=== PATIENT | female | born 1975 | race African-American/Black ===

== ENCOUNTER 2019-10-23 08:00 | Outpatient (CLI) | payer OTHER, SELFPAY ==
--- NOTE | ~2019-10-23 | MM_ITS ---
EXAMINATION: MM screening [facility] BI w keanu HISTORY: Screening mammogram TECHNIQUE: Craniocaudal and mediolateral oblique 3-D tomosynthesis images were obtained and synthetic 2-D images were generated. CAD analysis was submitted and interpreted. COMPARISON: Comparison to multiple prior studies sequentially, with oldest reviewed study dated 11/20 BREAST PARENCHYMAL COMPOSITION: There are scattered areas of fibroglandular density. FINDINGS: There is no evidence of suspicious mass, calcification, or architectural distortion to sugg est malignancy in either breast. There has been no suspicious interval change. IMPRESSION: 1. No mammographic evidence of malignancy. 2. Recommend routine screening mammography in one year. BI-RADS Category 1: Negative Reviewed, dictated and finalized at location A. APIST OCCUPATIONAL
== END 2019-10-23 08:01 | disposition home or self-care (01) ==
PROVIDERS: PCP Family Medicine; Visit Provider Physician Assistant
DX: Z12.31 Encounter for screening mammogram for malignant neoplasm of breast (principal)
CPT/HCPCS: 77063; 77067

== ENCOUNTER 2020-12-06 14:46 | Outpatient (CLI) | payer OTHER, SELFPAY | END 2020-12-06 14:47 | disposition home or self-care (01) | LOC: ANHCOVIDVC 14:46 | PROVIDERS: PCP Family Medicine | DX: Z23 Encounter for immunization (principal) | CPT/HCPCS: 0001A; 91300 ==

== ENCOUNTER 2020-12-29 14:16 | Outpatient (CLI) | payer OTHER, SELFPAY | END 2020-12-29 14:17 | disposition home or self-care (01) | LOC: ANHCOVIDVC 14:16 | PROVIDERS: PCP Family Medicine | DX: Z23 Encounter for immunization (principal) | CPT/HCPCS: 0002A; 91300 ==

== ENCOUNTER 2021-10-29 07:06 | Outpatient (CLI) | payer OTHER, SELFPAY ==
--- NOTE | ~2021-10-29 | MM_ITS ---
EXAMINATION: MM screening [facility] BI w keanu HISTORY: Screening TECHNIQUE: Craniocaudal and mediolateral oblique 3-D tomosynthesis images were obtained and synthetic 2-D images were generated. CAD analysis was submitted and interpreted. COMPARISON: Comparison to multiple prior studies sequentially, with oldest reviewed study dated 11/20. BREAST PARENCHYMAL COMPOSITION: There are scattered areas of fibroglandular density. FINDINGS: There are developing asymmetries in the outer aspect of the left breast on CC view. There i s a new mass in the upper inner quadrant of the left breast anteriorly. The right breast is stable wi thout evidence for malignancy. IMPRESSION: 1. New focal left breast asymmetries and mass. 2. Additional mammographic views and possible breast ultrasound are recommended. BI-RADS Category 0: Incomplete: Needs additional imaging evaluation. Reviewed, dictated and finalized at location A. T LINE PRODUCTION SUPERVISOR IMPRESSION: 1. New focal left breast asymmetries and mass. 2. Additional mammographic views and possible breast ultrasound are recommended . BI-RADS Category 0: Incomplete: Needs additional imaging evaluation.
== END 2021-10-29 07:07 | disposition home or self-care (01) ==
LOC: ANHIMG 07:07
PROVIDERS: PCP Family Medicine; Visit Provider Obstetrics & Gynecology
DX: Z12.31 Encounter for screening mammogram for malignant neoplasm of breast (principal); R92.8 Other abnormal and inconclusive findings on diagnostic imaging of breast
CPT/HCPCS: 77063; 77067

== ENCOUNTER 2021-11-14 13:27 | Outpatient (CLI) | payer OTHER, SELFPAY ==
--- NOTE | ~2021-11-14 | MMUS_ITS ---
EXAMINATION: MM diagnostic pernell LT w keanu, US breast LT complete HISTORY: Follow-up left breast mass TECHNIQUE: Additional 3-D tomosynthesis images of the left breast were performed and synthetic 2-D im ages were generated. CAD analysis was submitted and interpreted. High resolution complete left breast ultrasound was performed. COMPARISON: 10/23/2019 BREAST PARENCHYMAL COMPOSITION: Breast composed of scattered areas of fibroglandular density FINDINGS: MAMMOGRAPHIC FINDINGS: There is a mass in the upper inner quadrant of the left breast, middle third. No suspicious calcifica tions or architectural distortion. ULTRASOUND: Complete bilateral US of all 4 quadrants of the breasts and retroareolar region was reviewed. At 10:0 0, 4 cm from the nipple there is a 6 mm cyst corresponding to the mammographic abnormality. No other masses identified. No sonographic evidence for malignancy. IMPRESSION: 1. No evidence for malignancy in the left breast. Benign findings. 2. Routine yearly screening mammogram and regular clinical breast examination are recommended. BI-RADS Category 2: Benign finding(s). Reviewed, dictated and finalized at location A. IMPRESSION: 1. No evidence for malignancy in the left breast. Benign findings. 2. Routine yearly screening mammogram and regular clinical breast examination a re recommended. BI-RADS Category 2: Benign finding(s).
== END 2021-11-14 13:28 | disposition home or self-care (01) ==
LOC: ANHIMG 13:28
PROVIDERS: PCP Family Medicine; Visit Provider Obstetrics & Gynecology
DX: R92.8 Other abnormal and inconclusive findings on diagnostic imaging of breast (principal)
CPT/HCPCS: 76641; 77061; 77065; G0279

== ENCOUNTER 2022-05-17 05:30 | Emergency (ER) | payer OTHER, SELFPAY ==
[2022-05-17 05:35] VITALS: BP 158/96; PULSE 93; RESP 16; TEMP 36.7; O2SAT 96
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
== END 2022-05-17 05:58 | disposition home or self-care (01) ==
LOC: ANHED 05:50
PROVIDERS: Emergency Provider General Practice; PCP Family Medicine
DX: T23.261A Burn of second degree of back of right hand, initial encounter (principal); X10.1XXA Contact with hot food, initial encounter
CPT/HCPCS: 99283

== ENCOUNTER 2023-01-04 07:47 | Outpatient (CLI) | payer OTHER, SELFPAY ==
--- NOTE | ~2023-01-04 | MM_ITS ---
EXAMINATION: MM screening [facility] BI w keanu HISTORY: Screening mammogram TECHNIQUE: Craniocaudal and mediolateral oblique 3-D tomosynthesis images were obtained and synthetic 2-D images were generated. CAD analysis was submitted and interpreted. COMPARISON: 11/14/2021, 10/29/2021, 10/23/2019 BREAST PARENCHYMAL COMPOSITION: There are scattered areas of fibroglandular density. FINDINGS: No suspicious mass, calcification, or architectural distortion are identified in either ac ast to suggest malignancy. There has been no suspicious interval change. IMPRESSION: 1. No mammographic evidence of malignancy. 2. Recommend routine screening mammography in one year. BI-RADS Category 1: Negative Reviewed, dictated and finalized at location A.
== END 2023-01-04 07:48 | disposition home or self-care (01) ==
LOC: ANHIMG 07:50
PROVIDERS: PCP Family Medicine; Visit Provider Obstetrics & Gynecology
DX: Z12.31 Encounter for screening mammogram for malignant neoplasm of breast (principal)
CPT/HCPCS: 77063; 77067

== ENCOUNTER 2024-03-18 07:10 | Outpatient (CLI) | payer OTHER, SELFPAY ==
--- NOTE | ~2024-03-18 | MM_ITS ---
EXAMINATION: MM screening [facility] BI w keanu HISTORY: Screening TECHNIQUE: Craniocaudal and mediolateral oblique 3-D tomosynthesis images were obtained and synthetic 2-D images were generated. CAD analysis was submitted and interpreted. COMPARISON: Comparison to multiple prior studies sequentially, with oldest reviewed study dated 10/23. BREAST PARENCHYMAL COMPOSITION: Not dense: There are scattered areas of fibroglandular density. FINDINGS: There is no evidence of suspicious mass, calcification, or architectural distortion to sugg est malignancy in either breast. There has been no suspicious interval change. IMPRESSION: 1. No mammographic evidence of malignancy. 2. Recommend routine screening mammography in one year. BI-RADS Category 1: Negative Reviewed, dictated and finalized at location B.
== END 2024-03-18 07:11 | disposition home or self-care (01) ==
PROVIDERS: PCP Family Medicine; Visit Provider Obstetrics & Gynecology
DX: Z12.31 Encounter for screening mammogram for malignant neoplasm of breast (principal)
CPT/HCPCS: 77063; 77067

== ENCOUNTER 2024-07-11 18:11 | Emergency (ER) | payer OTHER, SELFPAY ==
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
--- NOTE | ~2024-07-11 | XR_ITS ---
HISTORY: pain COMPARISON: None TECHNIQUE: 2 views of the left femur were performed FINDINGS: No acute fracture is identified. No radiopaque foreign bodies. No significant degenerative disease within the visualized joint spaces. IMPRESSION: No acute fracture Reviewed, dictated and finalized at location A. 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
[2024-07-11 18:27] VITALS: BP 122/72; PULSE 68; RESP 16; TEMP 36.5; O2SAT 99
--- NOTE | 2024-07-11 18:30 | ECG_ITS ---
Test Date: 2024-07-11 19:22:54 Measurements Intervals [place] Rate: 70 P: 30 ME: 150 QRS: 14 QRSD: 97 T: 135 QT: 387 QTc: 418 Interpretive Statements SINUS RHYTHM POSSIBLE LEFT ATRIAL ENLARGEMENT INCOMPLETE RIGHT BUNDLE BRANCH BLOCK BORDERLINE T WAVE ABNORMALITY- DIFFUSE LEADS BASELINE WANDER- V2 BORDERLINE ECG No previous ECG available for comparison Electronically Signed On 07-12-2024 06:10:58 FILTER TIP CATCHER by Kendall Hanna D.O.
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
[2024-07-11 19:39] LABS: Hematocrit 40.5 % (37.0-47.0); Hemoglobin 12.6 g/dL (12.0-15.0); Mean Corpuscular HGB Conc 31.1 g/dl (32-36); Mean Corpuscular Hemoglobin 25.9 pg (26-34); Mean Corpuscular Volume 83.2 fl (80-100); Mean Platelet Volume 9.5 fl (7.4-10.4); Platelet Count Result 305 k/mm3 (150-375); Red Blood Count 4.87 M/mm3 (4.2-5.4); Red Cell Distribution Width 16.1 % (11.5-14.5); White Blood Count 22.7 K/mm3 (4.5-10.0)
[2024-07-11 19:50] LABS: INR 0.9; Prothrombin Time 12.7 Seconds (11.1-14.7)
[2024-07-11 19:51] LABS: Partial Thromboplastin Time 24.1 Seconds (22.3-36.8)
[2024-07-11 19:53] LABS: Alanine Aminotransferase 29 U/L (6-35); Alkaline Phosphatase 55 U/L (38-126); Anion Gap 8 mmol/L (4-12); Aspartate Amino Transferase 45 U/L (14-36); Bilirubin,Total 0.1 mg/dL (0.2-1.3); Blood Urea Nitrogen 18 mg/dL (7-17); Calcium 8.9 mg/dL (8.4-10.2); Carbon Dioxide 26 mmol/L (22-30); Chloride 104 mmol/L (98-107); Estimated CRCL calculation 71 ml/min; Estimated Glomerular Filt Rate > 60; Glucose 167 mg/dL (65-110); Potassium 3.8 mmol/L (3.4-5.0); Sodium 138 mmol/L (137-145)
[2024-07-11 20:05] LABS: Band Neutrophils Percent 2 % (0-6); Lymphocytes Absolute Manual 3.85 K/mm3 (1.1-4.5); Monocytes Absolute Manual 1.58 K/mm3 (0.1-0.90); Monocytes Percent Manual 7 % (3-9); Neutrophils Absolute Manual 17.25 K/mm3 (1.7-7.2); Neutrophils Percent Manual 74 % (46-73); Platelet Clumps Present; Platelet Estimate Adequate (Adequate); Total Cells Counted 100
[2024-07-11 20:06] LABS: Anisocytosis 1+; Schistocytes None Seen; Smudge Cells PRESENT
[2024-07-11 22:35] VITALS: BP 111/70; PULSE 72; RESP 14; O2SAT 99
--- NOTE | 2024-07-11 23:18 | PC.NURSE ---
care and report given to YANICK Herron. all questions answered.
[2024-07-11] MEDS: MORPHINE SULFATE (*CRX) 4 MG/ML INJ IV PUSH (23:31)
[2024-07-12 01:11] VITALS: BP 113/68; PULSE 76; RESP 14; O2SAT 98
[2024-07-14 10:03] LABS: BEDSIDEPREGUCG Negative (Negative)
== END 2024-07-12 01:12 | disposition home or self-care (01) ==
PROVIDERS: Physician Assistant; Emergency Provider Emergency Medicine; PCP Family Medicine
DX: S30.1XXA Contusion of abdominal wall, initial encounter (principal); S80.12XA Contusion of left lower leg, initial encounter; V49.50XA Passenger injured in collision with unspecified motor vehicles in traffic accident, initial encounter; M17.12 Unilateral primary osteoarthritis, left knee; D25.9 Leiomyoma of uterus, unspecified
CPT/HCPCS: 36415; 70450; 71260; 72125; 73552; 73564; 73630; 74177; 80053; 81025; 85025; 85610; 85730; 93005; 96374; 99284; J2270; Q9967